=== PATIENT | male | born 1950 | race Caucasian/White ===

== ENCOUNTER 2020-06-05 19:46 | Emergency (ER) | payer MEDICARE, MEDICAID ==
[~2020-06-05] VITALS: Ht 180.3 cm; Wt 75.0 kg
[~2020-06-05 19:46] MED LIST: ESZO1TAB8 PO; HYDR-4353 PO
[2020-06-05 19:49] VITALS: BP 148/97
[2020-06-05] MEDS ORDERED: bacitracin 15gm ointment TP ONE (22:10)
== END 2020-06-05 22:33 | disposition home or self-care (01) ==
LOC: ER 19:48
DX: S61.512A Laceration without foreign body of left wrist, initial encounter (principal); Z86.19 Personal history of other infectious and parasitic diseases; Z79.899 Other long term (current) drug therapy; W01.0XXA Fall on same level from slipping, tripping and stumbling without subsequent striking against object, initial encounter; Y93.89 Activity, other specified; Y92.89 Other specified places as the place of occurrence of the external cause; Y99.8 Other external cause status
CPT/HCPCS: 12001; 99282

== ENCOUNTER 2020-06-11 12:01 | Emergency (ER) | payer MEDICARE, MEDICAID ==
[~2020-06-11] VITALS: Ht 180.3 cm; Wt 73.0 kg
[2020-06-11 12:34] VITALS: BP 144/79
--- NOTE | 2020-06-11 13:07 | NUR ---
sutures removed and coban applied to wound with a 2x2 gauze
== END 2020-06-11 13:04 | disposition home or self-care (01) ==
LOC: ER 12:03
DX: S61.512D Laceration without foreign body of left wrist, subsequent encounter (principal); Z48.02 Encounter for removal of sutures; Z86.19 Personal history of other infectious and parasitic diseases; Z79.899 Other long term (current) drug therapy
CPT/HCPCS: 99281

== ENCOUNTER 2023-01-11 05:16 | Day surgery (SDC) | payer MEDICARE, MEDICAID ==
[2023-01-05 16:11] LABS: BASOPHILS % (AUTO) 0.6 % (0-1); EOSINOPHILS # (AUTO) 0.3 X10'3 (0-0.9); EOSINOPHILS % (AUTO) 5.1 % (0-6); LYMPHOCYTES # (AUTO) 2.3 X10'3 (1.1-4.8); LYMPHOCYTES % (AUTO) 40.7 % (21-51); MEAN CORPUSCULAR HEMOGLOBIN 29.5 PG (27.0-31.0); MEAN CORPUSCULAR HGB CONC 33.7 g/dL (33.0-36.5); MEAN CORPUSCULAR VOLUME 87.4 FL (78-98); MEAN PLATELET VOLUME 9.1 FL (7.4-10.4); MONOCYTES # (AUTO) 0.5 X10'3 (0-0.9); MONOCYTES % (AUTO) 8.7 % (2-12); NEUTROPHILS # (AUTO) 2.5 X10'3 (1.8-7.7); NEUTROPHILS % (AUTO) 44.9 % (42-75); PRE OP HEMATOCRIT 46.8 % (42.0-52.0); PRE OP HEMOGLOBIN 15.8 g/dL (14.0-17.9); PRE OP PLATELET COUNT 123 X10'3 (140-440); RED BLOOD COUNT 5.36 X10'6 (4.70-6.10); RED CELL DISTRIBUTION WIDTH 13.5 % (11.5-14.5)
[2023-01-05 16:12] LABS: CLARITY,URINE CLEAR (Clear); COLOR,URINE YELLOW (Yellow); GLUCOSE, URINE NEGATIVE (Neg); KETONES,URINE NEGATIVE (Neg); LEUKOCYTE ESTERASE ,URINE NEGATIVE (Neg); NITRITES, URINE NEGATIVE (Neg); OCCULT BLOOD,URINE NEGATIVE (Neg); PROTEIN,URINE NEGATIVE (Neg); UROBILINOGEN,URINE 0.2 E.U/dL (0.2-1.0)
[2023-01-05 16:15] LABS: UA COLLECTION TYPE CLN CATCH MIDSTREAM
[2023-01-05 16:25] LABS: ALBUMIN 4.4 G/DL (3.4-5.0); ALKALINE PHOSPHATASE 76 IU/L (46-116); BLOOD UREA NITROGEN 15 MG/DL (7-18); BUN/CREATININE RATIO 15.8 (10.0-20.0); CALCIUM 9.3 MG/DL (8.5-10.1); CHLORIDE 104 MMOL/L (99-107); CREATININE 0.95 MG/DL (0.60-1.10); PRE OP ALT 38 U/L (30-65); PRE OP ANION GAP 4 (8-16); PRE OP AST 33 U/L (10-37); PRE OP BILIRUB, TOTAL 0.5 MG/DL (0.0-1.0); PRE OP GLUCOSE 96 MG/DL (70-104); PRE OP POTASSIUM 4.1 MMOL/L (3.4-5.1); PRE OP SODIUM 140 MMOL/L (135-145); TOTAL CARBON DIOXIDE 32.1 MMOL/L (24-32); TOTAL PROTEIN 8.6 G/DL (6.4-8.2); eGFR 78 ML/MIN
[2023-01-11] VITALS (11 sets, daily range): BP systolic 107–165; BP diastolic 64–110
[~2023-01-11] VITALS: Ht 177.8 cm; Wt 93.9 kg
[~2023-01-11 05:16] MED LIST changes: -ESZO1TAB8 PO; +ringers solution, lacted 1,000 ML IV SCH
[2023-01-11] MEDS ORDERED: cefazolin 2gm/D5W 100mL 100 ML IV ONE (05:30)
[2023-01-11] MEDS ORDERED: famotidine 20mg tablet PO ONE (05:30)
[2023-01-11] MEDS ORDERED: BUPIVAcaine/PF 2.5 mg/ml (0.25%) 30ml vial ONE (06:48)
[2023-01-11] MEDS ORDERED: sevoflurane 250ml liquid IH ONE (07:32)
[2023-01-11] MEDS ORDERED: fentaNYL/PF 50MCG/1 ML 2ML syringe ONE (07:36)
[2023-01-11] MEDS ORDERED: midazolam 1 mg/ML 2ml injection ONE (07:36)
[2023-01-11] MEDS ORDERED: propofol inj 20 ML IV ONE (07:47)
[2023-01-11] MEDS ORDERED: rocuronium 10mg/ml inj IV ONE (07:47)
[2023-01-11] MEDS ORDERED: BUPIVAcaine/PF 2.5 mg/ml (0.25%) 30ml vial IJ ONE (08:13)
[2023-01-11] MEDS ORDERED: dexamethasone sod phosphate 4mg/ml inj. ONE (08:15)
[2023-01-11] MEDS ORDERED: labetalol 20mg/4ml (5mg/ml) syringe IV ONE (08:15)
[2023-01-11] MEDS ORDERED: meperidine/PF 25mg/ml syringe IV PRN ×2 (08:50)
[2023-01-11] MEDS ORDERED: morphine 2 MG/ML inj. syringe IV PRN (08:50)
[2023-01-11] MEDS ORDERED: ondansetron/PF 4mg/2ml inj IV PRN (08:50)
[2023-01-11] MEDS ORDERED: ringers solution, lacted 1,000 ML IV SCH (08:50)
[2023-01-11] MEDS ORDERED: proCHLORperazine 10 MG/2 ml inj IV PRN (08:50)
[2023-01-11] MEDS ORDERED: acetaminophen 1,000mg/100ml IV 100 ML IV ONE (09:00)
[2023-01-11] MEDS ORDERED: ondansetron/PF 4mg/2ml inj ONE (09:01)
[2023-01-11] MEDS ORDERED: neostigmine methylsulfate 1 MG/ML 10ml vial ONE (09:04)
[2023-01-11] MEDS ORDERED: glycopyrrolate 0.2mg/ml inj ONE (09:04)
--- NOTE | 2023-01-11 09:23 | NUR ---
Received from OR via [facility] , accompanied by Anesthesiologist and report given by JERONIMO Anesthesiologist. PATIENT WAKING UP, DENIES PAIN, V/S WNL, SCD ON , PIV 20G LEFT HAND, DERMABONDED LAPS SITES CLOSED C/D/I TO ABDOMEN. RUIZ CATHETER DRAINING CLEAR YELLOW URINE. Addendum: 01/11/23 at 1031 by Yunier Steen RN Amended: Links added.
[2023-01-11] MEDS: meperidine/PF 25mg/ml syringe IV PRN ×3 (09:28→10:24)
[2023-01-11] MEDS: morphine 4 MG/ML inj SYRINge IV PRN ×3 (09:47→10:43)
--- NOTE | 2023-01-11 11:38 | NUR ---
RUIZ CATHETER IN PLACE WITH NO COMPLICATIONS. GOOD OUTPUT OF URINE FROM F/C WITH CLEAR YELLOW URINE. I HAVE DEMONSTRATED F/C CARE AND PATIENT HAS VERBALIZED UNDERSTANDING ON HOME CARE. EDUCATION PACKET GIVEN TO PATIENT WELL FOR F/C MANAGEMENT FOR HOME. PATIENT AGREES HE WILL CALL DR GABRIEL OFFICE IN 2 DAYS FOR F/C D/C APPT IN OFFICE. ALL DISCHARGE CRITERIA HAS BEEN MET. VSS, PAIN AT A TOLERABLE LEVEL, ABLE TO SAFELY AMBULATE AND TRANSFER SELF. IV TAKEN OUT WITHOUT ANY COMPLICATIONS. ALL DISCHARGE INSTRUCTIONS COVERED WITH PATIENT AND ALL QUESTIONS ANSWERED. PATIENT TAKEN OUT VIA WHEELCHAIR WITH ALL BELONGINGS TO PERSONAL VEHICLE WHERE FRIEND DROVE PATIENT HOME. Addendum: 01/11/23 at 1142 by Yunier Steen RN Amended: Links added.
== END 2023-01-11 11:38 | disposition home or self-care (01) ==
LOC: PAS 05:16
PROVIDERS: ATTEND Surgery
DX: K40.90 Unilateral inguinal hernia, without obstruction or gangrene, not specified as recurrent (principal); M19.90 Unspecified osteoarthritis, unspecified site; H40.9 Unspecified glaucoma; Z86.19 Personal history of other infectious and parasitic diseases; Z79.899 Other long term (current) drug therapy; Z98.890 Other specified postprocedural states
CPT/HCPCS: 36415; 49650; 80053; 81003; 82948; 85025; 93005; C1758; C1781; J0131; J0690; J1100; J2175; J2250; J2270; J2405; J2704; J2710; J3010; J3490; J7030; J7120; Z7506; Z7508; Z7512; A4215; A4618; A5200